=== PATIENT | male | born 1990 | race Caucasian/White ===

== ENCOUNTER 2024-10-04 10:04 | Emergency (ER) | payer SELFPAY ==
[~2024-10-04] VITALS: Ht 182.9 cm; Wt 68.0 kg
[2024-10-04] MEDS ORDERED: Dexamethasone Sod Phos 10 MG/ML 1ML VIAL PO ONE (10:20)
[2024-10-04] MEDS ORDERED: IBUP800 PO (10:39)
[2024-10-05] MEDS ORDERED: AMOCLA875 PO ×2 (17:44)
== END 2024-10-04 10:44 | disposition home or self-care (01) ==
LOC: ER 10:04
DX: J02.9 Acute pharyngitis, unspecified (principal)
CPT/HCPCS: 87081; 87430; 99282; A9270; J1100

== ENCOUNTER 2024-10-05 13:02 | Emergency (ER) | payer SELFPAY ==
[~2024-10-05] VITALS: Ht 182.9 cm; Wt 72.6 kg
[~2024-10-05 13:02] MED LIST: IBUP800 PO
[2024-10-05] MEDS ORDERED: Lidocaine 2% Viscous Soln 15 ML UDC PO ONE (13:30)
[2024-10-05] MEDS ORDERED: NS 1,000 ML IV SCH (13:35)
[2024-10-05 14:00] LABS: BASOPHILS ABSOLUTE AUTO 0.04 K/mm3 (0.00-0.23); BASOPHILS PERCENT AUTO 0 % (0-2); EOSINOPHILS ABSOLUTE AUTO 0.09 K/mm3 (0.00-0.68); EOSINOPHILS PERCENT AUTO 1 % (0-6); Hematocrit 39.9 % (37.0-53.0); Hemoglobin 13.5 g/dL (13.5-17.5); IMMATURE GRAN ABSOLUTE AUTO 0.05 K/mm3 (0.00-0.10); IMMATURE GRAN PERCENT AUTO 0 % (0-1); LYMPHOCYTES ABSOLUTE AUTO 2.78 K/mm3 (0.84-5.20); LYMPHOCYTES PERCENT AUTO 21 % (21-46); MONOCYTES ABSOLUTE AUTO 0.99 K/mm3 (0.16-1.47); MONOCYTES PERCENT AUTO 7 % (4-13); Mean Corpuscular HGB Conc 33.8 g/dL (31.5-36.5); Mean Corpuscular Volume 85 fL (80-100); NEUTROPHILS ABSOLUTE AUTO 9.44 K/mm3 (1.96-9.15); NEUTROPHILS PERCENT AUTO 70 % (41-73); NRBC ABSOLUTE 0.00 K/mm3 (0.00-0.02); NRBC Auto 0.0 /100 WBC (0.0-0.2); Platelet Count 205 K/mm3 (150-400); RDW Coefficient Variation 13.3 % (11.7-14.2); RDW Standard Deviation 41.7 fL (35.1-46.3)
[2024-10-05 14:15] LABS: Alanine Aminotransfer (ALT/SGP 18.0 U/L (12-78); Albumin, Blood 3.8 g/dL (3.4-5.0); Albumin/Globulin Ratio 1.4 (0.8-1.8); Anion Gap 7.0 mmol/L (3-11); Aspartate Aminotrans (AST/SGOT 11.0 U/L (12-37); Bilirubin, Total 1.0 mg/dL (0.1-1.0); Blood Urea Nitrogen 10.0 mg/dL (8-24); CO2, Blood 26.0 mmol/L (21-32); Calcium, Blood 8.6 mg/dL (8.5-10.1); Chloride, Blood 108.0 mmol/L (98-108); Creatinine, Blood 0.86 mg/dL (0.60-1.20); Globulin, Blood 2.8 g/dL (2.2-4.0); Glucose, Blood 93.0 mg/dL (70-99); Potassium, Blood 3.8 mmol/L (3.5-5.5); Sodium, Blood 137.0 mmol/L (136-145); Total Protein, Blood 6.6 g/dL (6.4-8.2)
[2024-10-05] MEDS ORDERED: Ketorolac Tromethamine 15mg Vial IV ONE (15:50)
[2024-10-05] MEDS ORDERED: HYDROmorphone HCl/Pf 1MG SYR IV ONE (15:50)
[2024-10-05] MEDS ORDERED: Ondansetron HCl 2 MG / ML 2ML Vial IV ONE (16:20)
[2024-10-05] MEDS ORDERED: CefTRIAXone Sodium 2,000 MG in NS 100 ML IV ONE (17:40)
[2024-10-05] MEDS ORDERED: AMOCLA875 PO ×2 (17:44)
[2024-10-05] MEDS ORDERED: RX Prepack 6 Tabs Oxycodone 5mg UD ONE (17:55)
[2024-10-06] MEDS ORDERED: HYDROCODONE-AC1 EA10 PO (12:57)
== END 2024-10-05 19:10 | disposition home or self-care (01) ==
LOC: ER 13:02
PROVIDERS: Student in an Organized Health Care Education/Training Program
DX: J36 Peritonsillar abscess (principal); R25.2 Cramp and spasm
CPT/HCPCS: 70491; 80053; 85025; 86308; 87081; 87430; 96365-59; 96375; 99284-25; A9270; J0696; J1171; J1885; J2405; J7030; Q9967

== ENCOUNTER 2024-10-06 10:13 | Emergency (ER) | payer SELFPAY ==
[~2024-10-06] VITALS: Ht 182.9 cm; Wt 68.0 kg
[~2024-10-06 10:13] MED LIST changes: +AMOCLA875 PO
[2024-10-06] MEDS ORDERED: Benzocaine Oral Spray 0.5ML UD MT ONE (10:25)
[2024-10-06] MEDS ORDERED: HYDROcodone 5-APAP 325 TAB PO ONE (11:25)
[2024-10-06] MEDS ORDERED: Ondansetron 4 MG SoluTab MM ONE (12:00)
[2024-10-06] MEDS ORDERED: HYDROCODONE-AC1 EA10 PO (12:57)
[2024-10-06] MEDS ORDERED: Dexamethasone Sod Phos 10 MG/ML 1ML VIAL PO ONE (13:30)
== END 2024-10-06 13:49 | disposition home or self-care (01) ==
LOC: ER 10:13
DX: J36 Peritonsillar abscess (principal); Z79.2 Long term (current) use of antibiotics
CPT/HCPCS: 42700; 99283-25; A9270; J1100